=== PATIENT | male | born 1950 | race Caucasian/White ===

== ENCOUNTER 2016-07-16 10:11 | Emergency (ER) | payer MEDICARE, OTHER ==
[~2016-07-16] VITALS: Ht 185.4 cm; Wt 107.7 kg
[2016-07-16 10:17] VITALS: BP 192/121; PULSE 78; RESP 15; O2SAT 94
[2016-07-16 10:51] LABS: BASOPHILS % (AUTO) 0.3 % (0-3); EOSINOPHILS % (AUTO) 0.8 % (0-5); MONOCYTES % (AUTO) 9.5 % (4-12); Mean Corpuscular Hemoglobin 29.8 pg (27.0-35.0); Mean Corpuscular Volume 87.8 fL (81-100); NEUTROPHILS % (AUTO) 63.3 % (40-74); Platelet Count 252 bil/L (150-400)
[2016-07-16 11:01] LABS: TROPONIN T 0.01 ug/L (0.0-0.011)
[2016-07-16] MEDS ORDERED: hydrALAZINE 20 mg/mL Inj IV ONE (11:10)
[2016-07-16 11:12] LABS: Magnesium 2.1 mg/dL (1.6-2.6)
[2016-07-16] MEDS ORDERED: Alum-Mag Hydrox-Simeth 30 mL Suspension PO ONE (11:35)
--- NOTE | 2016-07-16 12:03 | DRSVH ---
PROCEDURE: X-RAY CHEST ONE VIEW, PORTABLE ([id number]) INDICATIONS: chest pain TECHNIQUE: One view of the chest was acquired. COMPARISON: None. FINDINGS: Surgical changes and devices: None. Lungs and pleura: No pleural effusions or pneumothorax. Lungs are clear. Mediastinum: Mediastinal contours appear normal. Heart size is normal. Bones and chest wall: No suspicious bony lesions. Overlying soft tissues appear unremarkable. IMPRESSION: No acute cardiopulmonary disease process. Dictated by: Edyta Cid MD, PhD on 07/16/2016 at 12:01 Approved by: Edyta Cid MD, PhD on 07/16/2016 at 12:01
[2016-07-16 12:29] VITALS: BP 156/86; PULSE 67; RESP 16; O2SAT 96
[2016-07-16] MEDS ORDERED: Donnatal-Lido-Mylant 1:1:1 15 mL Syringe PO ONE (12:35)
[2016-07-16] MEDS ORDERED: LidocaineVisc 2%:Antacid 1:1 10 mL Syringe PO ONE (12:40)
--- NOTE | 2016-07-16 12:46 | ED.REPORT ---
HPI-General Illness Date of Service Jul 16, 2016 ED Provider: Brian Kilpatrick MD Preet Shi is a 65yoM with history of CAD/MD with 1 angioplasty in 2007, HTN currently untreated/noncompliant, hiatal hernia presents with chest pain for 24 hours. The patient states that this chest pain feels different than the pressure of his previous heart attack and the burning of his acid reflux due to hiatal hernia. The patient states that the pain comes on briefly and goes away completely. The pain is described as sharp and rated at 7/10 at its worst and completely gone at other times. The patient states that movement and deep inspiration do not make the pain worse. Nothing makes it better. The patient has also noticed some associated numbness in his left hand The patient states that he has been under a lot of stress since arriving in [facility] on April. He was only suppose to be here for 4 days but the trip has been complicated by other issues. He is a resident of [facility] normally. Nursing Notes Stated Complaint: CHEST PAIN Chief Complaint: Chest Pain Nursing Notes Reviewed: Yes Allergies: Coded Allergies: No Known Allergies (Unverified , 07/16/16) Scheduled PRN Clonazepam (Klonopin) 0.5 Mg Tablet 0.5 MG PO BID PRN PRN For Anxiety General Time Seen by MD: 11:00 Chief Complaint Chest pain Hx Obtained From: Patient Sudden in Onset?: Yes Onset Occurred: 1 day ago Symptom Duration: Waxes and wanes Location: : Chest Quality: Painful, Sharp Radiation: : Arm left Severity: Current: Pain level 0 out of 10 Severity: Maximum: Pain level 7 out of 10 Recent Healthcare: No recent doctor visit, No recent hospitalization Similar Sx Previous: No HEART Score HEART for MACE: Low index of susp (0), Normal ECG (0), Age 65 or over (2), 1-2 CAD risk factors (1), < or = to NL troponin (0) HEART for MACE Score: 0-3 (low risk 0.9%-1.7%) Past Medical History Past Medical History reports GERD 2/2 hiatal hernia CAD anxiety/depression Reports: Coronary artery disease, GERD, Hyperlipidemia, Hypertension Past Surgical History Reports: Angioplasty (x1 2007) Smoking History Never Smoker Social History previously worked at [employer] Alcohol Use: Denies alcohol use Drug Use: Denies drug use Other Social History: Poor social support, From out of town, Visiting locally Ambulatory Status Independent Review of Systems Full Review of Systems Constitutional: Denies: Chills, Fever Eyes: Denies: Blurred bilateral, Eye pain bilateral, Visual loss bilateral Ears / Nose / Throat: Denies: Hearing loss bilateral Respiratory: Reports: Prod cough, yellow, Shortness of breath, Denies: Hemoptysis, Pleuritic pain Cardiovascular: Reports: Chest pain, Dyspnea on exertion, Denies: Edema, Syncope GI: Reports: Abdominal pain, Belching, Nausea, Vomiting, Denies: Diarrhea Male: Denies Dysuria, Denies Hematuria, Denies Urination decreased, Denies Urination increased Musculoskeletal: Denies: Extremity swelling, Neck pain Hematologic: Denies Bleeding, Denies Bruising Endocrine: Denies: Cold intolerance, Heat intolerance Skin: Denies Diaphoresis, Denies Rash Allergy / Immune: Denies: Hives, Rhinorrhea, Sneezing Neurologic: Denies: Change LOC, Confusion, Dizziness, Headache Psychiatric: Denies: Change mental status, Confusion Complete sys rev & neg: except as marked. Physical Exam Vital Signs Vital Signs Date Time Temp Pulse Resp B/P Pulse Ox O2 Delivery O2 Flow Rate FiO2 07/16/16 13:33 36.7 68 22 157/86 97 Room Air 07/16/16 12:29 67 16 156/86 96 Room Air 07/16/16 10:17 36.8 78 15 192/121 94 Room Air Initial VS: Reviewed General/Constitutional: Well-developed, Well-nourished Head / Eyes: Atraumatic, Normocephalic, PERRL ENT: Mucous membranes moist, Conjunctiva normal, No scleral icterus Neck: Supple, Non-tender, Full range of motion Respiratory: Breath sounds normal, Clear to auscultation, No respiratory distress Cardiovascular: Regular rate & rhythm, Heart sounds normal, Intact distal pulses Abdomen / GI: Soft, No guarding, No rebound, No distention Back: No CVA tenderness Lymphatic: No lymphadenopathy Extremities: Vascular intact, Neuro intact, No swelling, No tenderness Skin: Warm, Dry, No cyanosis Neurologic: Alert, Oriented, Nonfocal Psychiatric: Mood/affect normal, Behavior normal, Normal thought content General/Constitutional: Awake, Alert, Well appearing Distress / Hydration: Positive: Distress mild Appearance / Presentation: Positive: Obese (central adiposity) Head / Eyes: Normocephalic, PERRL, No scleral icterus, Conjunctiva NL ENT: Airway patent, Mucous membranes moist, Pharynx NL Neck: Supple, No meningismus, Full range of motion, No swelling, Non-tender, No masses Respiratory / Chest: Breath sounds NL, Breath sounds = bilat, No respiratory distress, No rales, No rhonchi, No wheezing Cardiovascular: Heart rate NL, Regular rhythm, Heart sounds NL, No murmurs, Cap refill not delayed, Peripheral circulation NL Abdomen: Soft, McBurney's non-tender, No guarding, No rebound, BS normoactive, No distention, No palpable mass, No pulsatile mass Tenderness/Guarding/Rebound: Positive: Tender diffuse Back: Inspection NL, Painless range of motion, Non-tender, No CVA tenderness Psychiatric: Judgment/insight NL, Thought content NL Abnormal Mood/Affect: Positive: Anxious, Depressed, Labile Interpretation & Diagnostics Lab Results Interpretation Result Diagram: 07/16/16 1000 07/16/16 1000 Test 07/16/16 10:00 07/16/16 13:00 White Blood Count 6.4th/mm3 (3.8-10.1) Red Blood Count 5.23mil/mm3 (4.40-5.80) Hemoglobin 15.6g/dL (13.8-17.2) Hematocrit 45.9% (41.0-50.0) Mean Corpuscular Volume 87.8fL (81-100) Mean Corpuscular Hemoglobin 29.8pg (27.0-35.0) Mean Corpuscular Hemoglobin Concent 34.0% (32.0-37.0) Red Cell Distribution Width 13.3% (12.3-15.4) Platelet Count 252bil/L (150-400) Neutrophils (%) (Auto) 63.3% (40-74) Lymphocytes (%) (Auto) 25.8% (14-46) Monocytes (%) (Auto) 9.5% (4-12) Eosinophils (%) (Auto) 0.8% (0-5) Basophils (%) (Auto) 0.3% (0-3) Sodium Level 137mEq/L (134-144) Potassium Level 4.2mEq/L (3.5-5.2) Chloride Level 101mEq/L (97-108) Carbon Dioxide Level 24mmol/L (18-29) Blood Urea Nitrogen 14mg/dL (8-27) Creatinine 1.03mg/dL (0.76-1.27) Estimat Glomerular Filtration Rate 77mL/min (>59) Glucose Level 108mg/dL (60-99) Calcium Level 10.3mg/dL (8.5-10.1) Magnesium Level 2.1mg/dL (1.6-2.6) Total Bilirubin 0.5mg/dL (0.0-1.2) Aspartate Amino Transf (AST/SGOT) 24U/L (0-50) Alanine Aminotransferase (ALT/SGPT) 25U/L (0-44) Alkaline Phosphatase 121U/L (25-160) Total Protein 7.6g/dL (6.4-8.4) Albumin 4.4g/dL (3.4-5.0) Lipase 23U/L (13-60) Troponin T < 0.010ug/L (0.0-0.011) X-Ray Chest Interpretation Chest Xray Interpretation: IMPRESSION: No acute cardiopulmonary disease process. Dictated by: Edyta Cid MD, PhD on 07/16/2016 at 12:01 Approved by: Edyta Cid MD, PhD on 07/16/2016 at 12:01 View: Portable Interpretation / Wet Read by: Interpret - Radiologist Re-Eval/Medical Decision Med Decision/Clinical Course 65yoM with history of CAD and HTN currently noncompliant on medication presents with intermittent chest pain x1 day. History states that the pain started while not active and comes and goes sporadically. Physical exam is unremarkable with no pain on palpation, no peripheral edema, no course breath sounds or wheezing, good pulses to all extremities. Troponin is negative. No EKG changes consistent with ischemia. CXR negative for pneumonia. Patient is diagnosed with musculoskeletal pain and will be discharged with advice to start taking all medication again including blood pressure and anxiety medication. Patient will be given a course of Klonipin to be sent home with for the significant anxiety. Patient does not have a flight back to [facility] until August 05. Ed follow up recommended at [facility] urgent care clinic. Counseled Regarding: Diagnosis, Lab results, Need for follow-up, When/why to return to ED Discharge & Departure Primary Impression: Non-cardiac chest pain Additional Impressions: Anxiety Serum calcium elevated Ruled Out: Myocardial infarction, Pneumonia Disposition: Home Discharge Condition All VS Reviewed: Yes Condition: Stable Patient Instructions: Chest Pain (ED), Generalized Anxiety Disorder (ED) Additional Instructions: During you visit to [facility] Emergency Department we obtained blood work for cardiac damage, infectious markers, hemoglobin levels, and electrolytes. We obtained high resolution imaging of your chest. All your lab values were within normal limits and your imaging showed no acute processes or abnormalities. Your vital signs were stable and safe for discharge. We are unsure of the cause of your chest discomfort, but we are confident that it is not due to cardiac damage. We will send you home with - Klonopin for anxiety When taking Klonopin anxiety medications DO NOT drive, DO NOT drink alcohol, as this medication is very sedating. This medication is not a termination clerk solution, it is only a bridge while you restart your regular medication. It is important you only take this medication as necessary for severe anxiety. You should be evaluated by your regular therapist as soon as possible, even if the evaluation is over the phone. You must restart your regular home medication, it is very important that you do this as soon as possible. Do not hesitate to call emergency services or your primary care physician if you experience any of the following. - High unrelenting fevers. - Uncontrolled vomiting. - Severe high blood pressure - dizziness or loss of consciousness. - Chest pain or severe shortness of breath. - worsening headaches or changes in vision We understand that you are from out of town but please follow up with [facility] residency clinic in 1-2 weeks time following your emergency department visit for medication checks and general well-being. Included is the contact information for [facility] residency clinic, please call as soon as possible after your discharge from the hospital to schedule a follow up appointment. Referrals: [facility] (PCP) [facility] Attending Statement The patient was seen and examined together with Dr. Phillips on 07/16/16 and I agree with the history, exam and plan as outlined in the note above. copies to: [facility] Bryon Phillips DO Jul 16, 2016 11:43 Brian Kilpatrick MD Jul 16, 2016 12:51
[2016-07-16] MEDS ORDERED: CLON0.5T PO (13:12)
[2016-07-16 13:33] VITALS: BP 157/86; PULSE 68; RESP 22; O2SAT 97
== END 2016-07-16 13:40 | disposition home or self-care (01) ==
LOC: EDBD 10:11 → SED 10:11
DX: R07.89 Other chest pain (principal); F41.9 Anxiety disorder, unspecified; E83.52 Hypercalcemia; R20.0 Anesthesia of skin; I25.10 Atherosclerotic heart disease of native coronary artery without angina pectoris; I25.2 Old myocardial infarction; E78.5 Hyperlipidemia, unspecified; K21.9 Gastro-esophageal reflux disease without esophagitis; I10 Essential (primary) hypertension; Z98.61 Coronary angioplasty status
CPT/HCPCS: 36415; 71010; 80053; 83690; 83735; 84484; 85025; 93005; 96374; 99285; A4300; G0463; J0360